=== PATIENT | female | born 1985 | race Caucasian/White ===

== ENCOUNTER 2016-10-04 13:00 | Inpatient (IN) | payer OTHER ==
--- NOTE | 2016-10-04 15:03 | PREOPERATIVE H&P ---
History of Present Illness (Srinivasa Cox M.D.; 10/04/2016 2:42 PM) The patient is a 31 year old female with a complaint of menstrual cramps. The onset of the cramping was post-menarchal and has been occurring in an episodic pattern for years. Each episode lasts 3 days. The course has been constant. The cramps are described as severe. Menstrual flow is described as heavy bleeding with clots (for about 4-5 days, total bleeding 5-7 days). Relation of pain to menses: occurs with every menses. There has been associated clots, flu like symptoms, dyspareunia, nausea and other (bloating), while there has been no associated fever, diarrhea or bloody stools . Previous diagnostic tests have included: PAP smear (negative). Current medication use includes: uses chewable ibuprofen as she has difficulty swallowing pills, has tried OCP's in the past but severe nausea with them. Therapy has been ineffective. Additional reasons for visit: Preop Visit is described as the following: Surgical procedures include : TVH. The reason for surgery is dysmenorrhea. Date of procedure: (10/10/2016). Planned anesthesia: general anesthesia . Cardiac risk factors include: family history of CAD in a first degree relative . There are no identifiable risk factors for post operative thromboembolism . In depth conversation with the patient/guardian concerning the procedure, risks, complications, benefits, alternatives, possible failure (I again discussed with patient today that hysterectomy would only eliminate bleeding and cramping associated with her menses and would not treat her underlying sexual dysfunction. I again encouraged her to seek both sexual counseling as well as physical therapy.) and need for further surgery or intervention questions were answered and no guarantees were made. 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 Tobacco use Never smoker. Medication History (Sierra Cain RN; 10/04/2016 1:43 PM) Melatonin (10MG Tab Sublingual, 1 Sublingual at bedtime as needed) Active. / History (Srinivasa Cox M.D.; 10/04/2016 1:57 PM) Deliveries (Parity)11/10/2009 1-Emergency C-sect due to maternal high bp Living Children (Number Of) 1 Maternal complications [id number]. Pregnancies () 1 Past Surgical History (Sierra Cain RN; 10/04/2016 1:53 PM) [id number] Health Maintenance History (Srinivasa Cox M.D.; 10/04/2016 1:57 PM) Pap Smear05/26/2015 Within Normal Limits. Review of Systems (Srinivasa Cox M.D.; 10/04/2016 2:13 PM) General Not Present- Fever. Skin Not Present- Rash. HEENT Not Present- Corrective lenses. Neck Not Present- Neck Swelling. Respiratory Not Present- Cough, Hemoptysis and Wheezing. Cardiovascular Not Present- Chest Pain and Fainting / Blacking Out. Gastrointestinal Present- Bloating (with her cycles). Not Present- Bloody Stool. Female Genitourinary Not Present- Dysuria and Vaginal itching/burning. Musculoskeletal Not Present- Joint Redness. Neurological Not Present- Focal Neurological Symptoms. Endocrine Not Present- Hot flashes. Hematology Not Present- Bleeding Problems and DVT. Vitals (Sierra Cain RN; 10/04/2016 1:52 PM) 10/04/2016 1:50 PM Weight: 107 lb Height: 59in Body Surface Area: 1.41 m Body Mass Index: 21.61 kg/m LMP: 10/01/2016 Pulse: 80 (Regular) Resp.: 16 (Unlabored) BP: 118/72 (Sitting, Left Arm, Standard) Physical Exam (Srinivasa Cox M.D.; 10/04/2016 2:40 PM) General General Appearance-Well Appearing. Build & Nutrition-Normal. Integumentary Integumentary General Characteristics Overall examination of the patient's skin reveals - no rashes. Head and Neck Neck Global Assessment - full range of motion, No lymphadenopathy. Thyroid Gland Characteristics - normal size and consistency and no palpable nodules. ENMT Mouth and Throat Oral Cavity/Oropharynx - Oropharynx - no evidence of airway distress observed. Chest and Lung Exam Chest and lung exam reveals -Clear and quiet, even and easy respiratory effort with no use of accessory muscles. Cardiovascular Cardiovascular examination reveals -normal heart sounds, regular rate and rhythm with no murmurs. Abdomen Inspection Inspection of the abdomen reveals - No Hernias. Incisional scars - Pfannenstiel. Palpation/Percussion Palpation and Percussion of the abdomen reveal - Non Tender, No hepatosplenomegaly and No Palpable abdominal masses. Other Characteristics - No Costovertebral angle tenderness - Left, No Costovertebral angle tenderness - Right. Female Genitourinary External Genitalia Vulva - Characteristics - Normal. Lesions - None. Labia Majora - Characteristics - Bilateral - Non Tender, No Inflammation. Lesions - Bilateral - None. Perineum - Normal. Clitoris - Normal. Labia Minora - Lesions - Bilateral - None. Characteristics - Bilateral - Non Tender, No Inflammation. Introitus - Characteristics - Tender. Bartholin's Gland - Bilateral - Non Tender. Urethra - Characteristics - Normal. Urethral Meatus - Characteristics - No Urethral Caruncle. Peak Place Gland - Bilateral - Normal. Speculum & Bimanual Vagina - Vaginal Wall - Normal. Vaginal Lesions - None. Vaginal Mucosa - Mimbres and Rugae, No Secretions. Cervix - Characteristics - Parous, No Motion tenderness. Uterus - Characteristics - Non Tender. Position - Anteverted. Adnexa - Characteristics - Bilateral - Non Tender. Masses - No Adnexal Masses. Bladder - Not Tender. Set Up Technician-present for exam . Peripheral Vascular Lower Extremity Palpation - Tenderness - Bilateral - Non Tender. Edema - Bilateral - No edema. Neuropsychiatric Mental status exam performed with findings of-Oriented X3 with appropriate mood and affect. Lymphatic Axillary Supraclavicular Nodes: Bilateral - Supraclavicular Lymph Nodes - No supraclavicular lymphadenopathy. 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 (10/04/2016 2:47 PM) RAJD
[2016-10-31] MEDS ORDERED: CEFOXITIN SODIUM 1 GM in NORMAL SALINE MINI-BAG+ 100 ML IV ONE (06:28)
[2016-10-31] MEDS ORDERED: MORPHINE SULFATE/PF 10 MG/10 ML VIAL ONE (06:50)
[2016-10-31] MEDS ORDERED: FENTANYL 100 MCG/2 ML VIAL ONE (06:50)
[2016-10-31] MEDS ORDERED: CEFOXITIN SODIUM 1 GM/10 ML VIAL ONE (06:54)
[2016-10-31] MEDS ORDERED: LIDOCAINE HCL 1% 20 ML VIAL SUBCUT ONE ×2 (07:04→09:36)
[2016-10-31] MEDS ORDERED: MIDAZOLAM HCL 2 MG/2 ML SYR IV ONE (07:04)
[2016-10-31] MEDS ORDERED: ACETAMINOPHEN 1,000 MG/100 ML VIAL IV ONE (07:12)
[2016-10-31] MEDS ORDERED: FAMOTIDINE IN SALINE, ISO-OSM 50 ML IV ONE (07:12)
[2016-10-31] MEDS ORDERED: MIDAZOLAM HCL 2 MG/2 ML VIAL ONE (07:12)
[2016-10-31] MEDS ORDERED: FAMOTIDINE IN SALINE, ISO-OSM 20 MG/50 ML PIGGYBACK IV SCH ×2 (07:15→09:36)
[2016-10-31] MEDS ORDERED: ACETAMINOPHEN 1,000 MG/100 ML VIAL IV SCH ×2 (07:15→09:36)
[2016-10-31] MEDS ORDERED: FENTANYL 250 MCG/5 ML VIAL ONE (07:16)
[2016-10-31] MEDS ORDERED: ROCURONIUM BROMIDE 50 MG/5 ML VIAL IV ONE (07:17)
[2016-10-31] MEDS ORDERED: SUCCINYLCHOLINE CHLORIDE 200 MG/10 ML VIAL ONE (07:17)
[2016-10-31] MEDS ORDERED: ONDANSETRON HCL 4 MG/2 ML VIAL ONE (07:17)
[2016-10-31] MEDS ORDERED: LIDOCAINE HCL 2% JELLY 1 APP/5 ML TUBE ONE (07:18)
[2016-10-31] MEDS ORDERED: DEXAMETHASONE 10 MG/ML VIAL ONE (07:18)
[2016-10-31] MEDS ORDERED: KETOROLAC TROMETHAMINE 30 MG/ML VIAL ONE (07:18)
[2016-10-31] MEDS ORDERED: LIDOCAINE HCL 2% 20 ML VIAL ONE (07:20)
[2016-10-31] MEDS ORDERED: METHYLENE BLUE 10 MG/ML VIAL IV ONE (07:33)
[2016-10-31] MEDS ORDERED: NORMAL SALINE FLUSH 40 ML ONE (07:34)
[2016-10-31] MEDS ORDERED: LACTATED RINGERS 1,000 ML IV SCH ×3 (08:00→09:36)
[2016-10-31] MEDS ORDERED: SEVOFLURANE 250 ML BTL INHALATION ONE (08:20)
--- NOTE | 2016-10-31 09:31 | PROCEDURE NOTE: GYN ---
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 Probable small leiomyoma of the uterus- Pathology pending. Anesthesia Type: General Physician: DANICA MCLAUGHLIN Estimated Blood Loss: 100 Pathology: sent Sponge and instrument counts: correct Condition: stable Disposition: PACU Narrative: The patient is taken to the operating theater and placed supine on the operating table. General endotracheal anesthesia was induced. She is placed in dorsal lithotomy position using Pedro stirrups. Vagina and perineum are prepped, her bladder is drained, and then stained with indigo carmine dye. The patient is draped in the usual sterile fashion. The cervix is visualized and grasped with a double-tooth tenaculum. The vagina was incised circumferentially around the cervix. Using sharp and blunt dissection the anterior peritoneal reflection was identified and entered into sharply. A long retractor is then entered into this incision and the bladder is elevated. Posterior cul-de-sac was then entered into sharply and a long weighted retractor is entered into this incision. The uterosacral ligaments on both left and right sides are clamped cut and tied in a Shayna fashion with 0 Vicryl sutures and tagged. Cardinal ligaments on both left and right sides are then clamped cut and ligated in Shayna fashion with 0 Vicryl sutures. Uterine vessels on both left and right sides were then clamped cut and ligated in Shayna fashion with 0 Vicryl sutures. The lower section of the broad ligament on both left and right sides are clamped cut and ligated in Shayna fashion with 0 Vicryl sutures. Uterus is delivered posteriorly and the utero-ovarian round ligament complex on left right sides are clamped cut and ligated in Shayna fashion with 0 Vicryl sutures. The uterus and cervix are removed and submitted to pathology. The left fallopian tube was mobilized and then the mesosalpinx is clamped cut and ligated in Shayna fashion with 0 Vicryl sutures. The fallopian tube is submitted to pathology. The right fallopian tube is mobilized and the right mesosalpinx was clamped cut and ligated in Shayna fashion with 0 Vicryl sutures. The fallopian tube is submitted to pathology. The posterior vaginal cuff was closed with a running interlocking 0 Vicryl suture. After assuring excellent hemostasis of all vascular pedicles the uterosacral ligament tags were attached to the lateral vaginal cuff, the anterior peritoneal reflection and exited the posterior cuff in the midline. The vaginal cuff is closed with multiple figure of eight 0-Vicryl sutures. The uterosacral ligament tags are tied in the midline with excellent support of the vaginal cuff. A Pike catheter is placed to down drain, the patient placed supine on the operating table, awakened by anesthesia and taken to PACU.
[2016-10-31] MEDS ORDERED: ONDANSETRON HCL 4 MG/2 ML VIAL IV PRN ×2 (09:36→11:14)
[2016-10-31] MEDS ORDERED: MORPHINE SULFATE 10 MG/ML SYR IV PRN (09:36)
[2016-10-31] MEDS ORDERED: FENTANYL 100 MCG/2 ML VIAL IV PRN (09:36)
[2016-10-31] MEDS: HYDROmorphone HCL 1 MG/ML SYR IV PRN ×4 (09:40→10:24)
[2016-10-31] MEDS ORDERED: HYDROmorphone HCL 1 MG/ML SYR ONE (10:17)
[2016-10-31] MEDS ORDERED: NALOXONE HCL 0.4 MG/ML VIAL IV PRN (11:14)
[2016-10-31] MEDS ORDERED: ZOLPIDEM TARTRATE 5 MG TABLET PO PRN (11:14)
[2016-10-31] MEDS ORDERED: POTASSIUM CHLORIDE/D5 0.45%NAC 1,000 ML IV SCH (11:14)
[2016-10-31] MEDS ORDERED: HYDROcodone/APAP 5/325 MG 1 TAB TABLET PO PRN ×2 (11:14)
[2016-10-31] MEDS ORDERED: SIMETHICONE CHEW 80 MG TABLET PO PRN (11:14)
[2016-10-31] MEDS ORDERED: MORPHINE PCA 30 MG/30 ML PCA.VIAL IV PRN ×2 (11:14→12:11)
[2016-10-31] MEDS: KETOROLAC TROMETHAMINE 30 MG/ML VIAL IV PRN ×2 (13:30→19:45)
--- NOTE | 2016-10-31 17:59 | PROGRESS NOTE: GYN Post-op ---
Assessment and Plan - Date of Encounter Date of Encounter: 10/31/16 (1) S/P gynecological surgery, follow-up exam Problem details: S/P TVH Status: Acute Assessment and plan: As ambulating and tolerating po will advance diet and remove Pike. Current Visit: Yes - Time Spent With Patient Total time spent with greater than 50% in coordination of care (as documented) at patient's floor/unit and/or counseling patient: ASSISTANT INVENTORY MANAGER: Post-op Note Subjective Interval History: Has been doing well since surgery, tolerating po and has begun ambulation. Post-op Day: 0 Patient reports: pain well controlled, ambulating normally, no nausea ASSISTANT INVENTORY MANAGER: Post-op Note Objective - Latest Vital Signs and I&O Latest Vital Signs/I&O: Vital Signs Temp 37.2 C 10/31/16 14:59 Pulse 78 10/31/16 14:59 Resp 16 10/31/16 14:59 BP 122/54 10/31/16 14:59 Pulse Ox 94 10/31/16 14:59 Intake & Output 10/30/16 10/31/16 10/31/16 17:59 05:59 17:59 Intake Total 900 Output Total 700 Balance 200 Weight 47.6 kg Intake: IV 600 Right Wrist 600 Oral 300 Output: Urine 700 Straight 50 Uretheral (Pike) 50 Other: Urine Appearance Clear Urine Color Yellow Straight Yellow Uretheral (Pike) Indigo Voiding Method Indwelling Catheter - Exam Lungs: Bilateral: normal Heart Rhythm: Present: regular Extremities: Absent: tenderness Abdomen: Present: soft Bowel sounds: present
[2016-10-31] MEDS ORDERED: HYDROcodone/APAP 7.5/325 MG 15 ML UDC PO PRN (18:15)
[2016-10-31] MEDS ORDERED: DOCUSATE SODIUM 100 MG/10 ML UDC ONE (20:31)
[2016-10-31] MEDS ORDERED: DOCUSATE SODIUM 100 MG CAPSULE PO SCH (21:00)
[2016-10-31] MEDS ORDERED: DOCUSATE SODIUM 100 MG/10 ML UDC PO SCH (21:00)
[2016-11-01] MEDS: KETOROLAC TROMETHAMINE 30 MG/ML VIAL IV PRN (04:00)
[2016-11-01 06:14] VITALS: BP 94/47; PULSE 62; RESP 18; TEMP 97.9; O2SAT 95
[2016-11-01 06:25] LABS: BASOPHIL# 0.1 X 10^3uL (0.0-0.1); BASOPHILS 0.5 % (0.0-2.0); EOSINOPHILS 0.3 % (0.0-6.0); HEMATOCRIT 37.7 % (36.0-48.0); HEMOGLOBIN 12.6 g/dL (12.0-16.0); LYMPHOCYTES 16.7 % (20.0-40.0); LYMPHOCYTES# 2.4 X 10^3uL (0.8-3.8); MEAN CELL VOLUME 85.4 fL (84.0-102.0); MEAN CORPUS. HGB CONCENTRATION 33.5 g/dL (32.0-36.0); MEAN CORPUSCULAR HEMOGLOBIN 28.6 pg (29.0-35.0); MEAN PLATELET VOLUME 8.9 fL (7.4-10.4); MONOCYTES 8.1 % (2.0-10.0); MONOCYTES# 1.2 X 10^3uL (0.2-1.0); NEUTROPHILS 74.4 % (54.0-75.0); NEUTROPHILS# 10.8 X 10^3uL (2.6-6.7); PLATELET COUNT 257 X 10^3uL (130-440); RED BLOOD COUNT 4.41 X 10^6uL (4.20-6.10); RED CELL DISTRIBUTION WIDTH 12.8 % (11.5-14.5)
[2016-11-01 06:30] LABS: BLOOD UREA NITROGEN 8 mg/dL (7-17); CALCIUM 8.8 mg/dL (8.4-10.2); CHLORIDE 109 mmol/L (98-107); CREATININE 0.6 mg/dL (0.5-1.0); EST GLOMERULAR FILTRATION RATE > 60 mL/min; GLUCOSE 92 mg/dL (70-100); POTASSIUM 4.2 mmol/L (3.5-5.1); SODIUM 140 mmol/L (137-145)
[2016-11-01 07:27] LABS: WHITE BLOOD COUNT 14.5 X 10^3uL (3.9-10.7)
[2016-11-01] MEDS ORDERED: DOCUSATE SODIUM 100 MG CAPSULE PO ONE (09:02)
--- NOTE | 2016-11-01 10:02 | DC SUMMARY: Obstetrical/GYN ---
Discharge Summary: Surg/OB Provider: Date of Admission: 10/31/16 Admitting Provider: DANICA COX MD Attending Provider: DANICA COX MD Discharging Provider: DANICA COX MD Primary Care Provider: Discharge Date: 11/01/16 - Diagnosis (1) S/P gynecological surgery, follow-up exam Status: Acute Hospital Course: Ms. VIGIL is a 31 year old female admitted for TVH for dysmenorrhea. Surgery was without complication and her post operative course was unremarkable. She had good return of bowel and bladder function and is discharged on the first day in good condition. Discharge - Patient/Caregiver Discharge Instructions Activity Level: Pelvic rest Diet: Regular Additional Instructions: Danica Cox M.D. [address] [place] [address] PHONE [phone] FAX [phone] Reviewed 02/2015 Post Hysterectomy and/or Vaginal Repair 1. Please make an appointment for your first post operative check up to see me one week from the date of surgery. Your second post operative appointment should be made six weeks from the date of your surgery. Call the clinic to make these appointments. Do not hesitate to call me, or my nurse, with any questions or problems. 2. Get plenty of rest. You will tire more easily than you might expect. It would be best for you to restrict your activities until after your first post operative visit. As you feel up to it, you may increase your activity. Use your own judgment, listen to your body, and take frequent short rests as you become tired. Your restrictions will probably be lifted after your second post operative visit. 3. You will receive a prescription for pain pills upon hospital discharge. I recommend you alternate these with ibuprofen. If needed, take as directed. Contact me if strength is inadequate. Do not drive a car or operate machinery as long as you are taking narcotic pain medication. 4. No heavy lifting or straining. Do not lift anything more than 20 pounds. 5. You may climb stairs but try to make the trip worthwhile. Do not walk up and down excessively. 6. Take only showers for the first two weeks. Sitz baths may be taken to help relieve perineal discomfort. Baths may be taken after two weeks if desired. 7. You may have vaginal spotting for approximately four to six weeks. There may be an odor or you may pass suture material. Use mini or maxi pads. The bleeding should not be heavier than a normal period. Report any bleeding heavier than a period to me immediately. 8. Bleeding may be heavier after activity. If your bleeding does not slow down after resting, please notify me immediately. 9. No pelvic activity. No tampons, douching or intercourse. 10. If bladder surgery was performed, it may take days or even weeks for your bladder to perform adequately. You may go home with a bladder catheter which will be removed the week after surgery. Do not go longer than four hours without voiding during the day time. 11. If you feel constipated, use Milk of Magnesia at bedtime. 12. Eat a well-balanced diet. You should drink 6-8 glasses of fluid per day. Fresh fruits, green leafy vegetables, bran cereals and whole wheat breads should be eaten to prevent constipation. If necessary, stool softeners may be obtained at the pharmacy without a prescription. Use as directed. 13. Report any vomiting or fever above 100.5 degrees immediately. 14. I can be reached through the hospital nursing station ([phone]), Charge Nurse ([phone]) or Hospital Electronics Test Engineer ([phone]). Danica Cox M.D. 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 Discharge Exam - Latest Vital Signs and I&O Latest Vital Signs/I&O: Vital Signs Temp 36.6 C 11/01/16 06:00 Pulse 62 11/01/16 06:00 Resp 18 02/15/17 06:00 BP 94/47 11/01/16 06:00 Pulse Ox 95 11/01/16 06:00 Intake & Output 10/31/16 11/01/16 11/01/16 17:59 05:59 17:59 Intake Total 900 450 Output Total 700 1200 Balance 200 -750 Weight 47.6 kg 47.6 kg Intake: IV 600 Right Wrist 600 Oral 300 450 Output: Urine 700 1200 Straight 50 Uretheral (Pike) 50 Other: Urine Appearance Clear Clear Urine Color Yellow Yellow Straight Yellow Uretheral (Pike) Indigo Voiding Method Indwelling Catheter Toilet # Voids 4 # Bowel Movements 0 - Exam Lungs: Bilateral: normal Heart Rhythm: Present: regular Extremities: Absent: tenderness Abdomen: Present: soft Bowel sounds: present Discharge Summary Data - Medication History Medication History: Home Medications Adapalene [Differin] 1 juan m TOPICAL DAILY PRN 10/31/16 Beauty & Skin Therapy Tablet 1 tab PO HS 10/31/16 Clindamycin Phosphate [Cleocin T] 1 juan m TOPICAL DAILY PRN 10/31/16 Melatonin [Melatonin*] 3 mg PO HS 10/31/16 Inpatient Medications 10/31/16 11:14 Ketorolac Tromethamine [Toradol] 30 mg IV Q6H PRN Naloxone HCl [Narcan] 0.1 mg IV PRN PRN Ondansetron HCl [Zofran] 4 mg IV Q6H PRN Simethicone Chew [Mylicon] 80 mg PO Q4H PRN Zolpidem Tartrate [Ambien] 5 mg PO HS PRN 10/31/16 18:15 HYDROcodone/APAP 7.5/325 MG [NORCO ELIXIR 7.5/325/15ml] 15 ml PO PRN PRN 10/31/16 21:00 Docusate Sodium [Colace Liquid] 100 mg PO BID Procedures and tests throughout hospitalization: Completed Lab Orders 11/01/16 05:50 BASIC METABOLIC PANEL [CHEM] AMDRAW CBC AUTO DIF, MDIF/RMOR IF IND [HEM] AMDRAW Pending Orders 10/31/16 06:28 Anesthesia Type . Insert Peripheral IV ONCE NPO After midnight 0000 Pre-op by anesthesia . Resuscitation Status Routine Sequential Compression Device WHILE IN BED 10/31/16 07:04 Anesthesia Type . Insert Peripheral IV ONCE 10/31/16 09:36 Lucie hugger if temp <34 C PRN Notify Anesthesia . Titrate Oxygen TITRATE TO >90% Warm blankets if temp<36 C PRN 10/31/16 11:14 Admit: Observation Routine Activity: Dangle at Bedside DANGLE 4H AFTER PACU Dressing Change PRN Incentive Spirometry Q1H Intake and Output QSHIFT I&O K Pad PRN Notify Physician PRN Straight Cath IF BS>500MLS Teach: Post Hysterectomy &/or . Turn, Cough, and Deep Breathe Q1H Vital Signs ROUTINE VITALS (Q4H) Ketorolac Tromethamine [Toradol] 30 mg IV Q6H PRN Naloxone HCl [Narcan] 0.1 mg IV PRN PRN Ondansetron HCl [Zofran] 4 mg IV Q6H PRN Simethicone Chew [Mylicon] 80 mg PO Q4H PRN Zolpidem Tartrate [Ambien] 5 mg PO HS PRN 10/31/16 18:15 HYDROcodone/APAP 7.5/325 MG [NORCO ELIXIR 7.5/325/15ml] 15 ml PO PRN PRN 10/31/16 20:00 Transfer to Floor PER PROTOCOL 10/31/16 21:00 Docusate Sodium [Colace Liquid] 100 mg PO BID 10/31/16 Dinner Regular [DIET] 11/01/16 08:00 Transfer to Floor PER PROTOCOL 11/01/16 09:00 May shower with wound uncovere POD #1 11/01/16 10:03 Activity: Ambulate with Assist TID Labs on day of discharge: Labs from last 24 hours 11/01/16 05:50 WBC 14.5 H RBC 4.41 Hgb 12.6 Hct 37.7 MCV 85.4 MCH 28.6 L MCHC 33.5 RDW 12.8 Plt Count 257 MPV 8.9 Neutrophils % 74.4 Lymphocytes % 16.7 L Eosinophils % 0.3 Basophils % 0.5 Neutrophils # 10.8 H Lymphocytes # 2.4 Monocytes 8.1 Monocytes # 1.2 H Eosinophils # 0.0 Basophils # 0.1 Sodium 140 Potassium 4.2 Chloride 109 H Carbon Dioxide 24 BUN 8 Creatinine 0.6 GFR Calculation > 60 Glucose 92 Calcium 8.8
== END 2016-11-01 10:02 | disposition home or self-care (01) | DRG 743 ==
LOC: IN 10-31 05:50
PROVIDERS: ADMIT Obstetrics & Gynecology; ATTEND Obstetrics & Gynecology
PROC: 0UT97ZZ Resection of Uterus, Via Natural or Artificial Opening (ICD-10-PCS; principal; 2016-10-31)
PROC: 0UT77ZZ Resection of Bilateral Fallopian Tubes, Via Natural or Artificial Opening (ICD-10-PCS; principal; 2016-10-31)
DX: N94.6 Dysmenorrhea, unspecified (principal); F41.9 Anxiety disorder, unspecified
CPT/HCPCS: 36415; 80048; 85025; 96375; 96376; J0694; J1100; J1170; J1885; J2250; J2270; J2405; J3480